=== PATIENT | male | born 1945 ===

== ENCOUNTER 2019-05-12 04:43 | Inpatient (IN) | payer MEDICARE, BC ==
[~2019-05-12] VITALS: Ht 165.1 cm; Wt 72.5 kg
[~2019-05-12 04:43] MED LIST: AMLO10 PO; ASPI81CH PO; ATEN25 PO; HYDACE5 PO; HYDCHL25 PO; HYDRA25 PO; INSUASPI SC; INSULANPEN SC; LISI20 PO
[2019-05-12 05:27] LABS: BASOPHILS ABSOLUTE AUTO 0.08 K/mm3 (0.00-0.23); BASOPHILS PERCENT AUTO 0 % (0-2); EOSINOPHILS ABSOLUTE AUTO 0.01 K/mm3 (0.00-0.68); EOSINOPHILS PERCENT AUTO 0 % (0-6); Hematocrit 36.7 % (37.0-53.0); Hemoglobin 12.4 g/dL (13.5-17.5); IMMATURE GRAN ABSOLUTE AUTO 0.11 K/mm3 (0.00-0.10); IMMATURE GRAN PERCENT AUTO 0 % (0-1); LYMPHOCYTES ABSOLUTE AUTO 1.83 K/mm3 (0.84-5.20); LYMPHOCYTES PERCENT AUTO 7 % (21-46); MONOCYTES ABSOLUTE AUTO 1.28 K/mm3 (0.16-1.47); MONOCYTES PERCENT AUTO 5 % (4-13); Mean Corpuscular HGB 31.6 pg (26.0-34.0); Mean Corpuscular HGB Conc 33.8 g/dL (31.5-36.5); Mean Corpuscular Volume 94 fL (80-100); Mean Platelet Volume 9.6 fL (9.1-12.4); NEUTROPHILS ABSOLUTE AUTO 22.79 K/mm3 (1.96-9.15); NEUTROPHILS PERCENT AUTO 87 % (41-73); Platelet Count 359 K/mm3 (150-400); RDW Coefficient Variation 14.3 % (11.7-14.2); RDW Standard Deviation 48.9 fL (35.1-46.3); Red Blood Cell Count 3.92 M/mm3 (4.30-5.90)
[2019-05-12 05:36] LABS: PCO2 Arterial 25.5 mmHg (35-45); PO2 Arterial 60.5 mmHg (80-100); pH Blood Arterial 7.43 (7.35-7.45)
[2019-05-12 05:45] LABS: Alanine Aminotransfer (ALT/SGP 25 U/L (12-78); Albumin, Blood 3.3 g/dL (3.4-5.0); Albumin/Globulin Ratio 0.9 (0.8-1.8); Alk Phos 100 U/L (50-136); Anion Gap 13 mmol/L (6-16); Aspartate Aminotrans (AST/SGOT 51 U/L (12-37); Bilirubin, Total 0.8 mg/dL (0.1-1.0); Blood Urea Nitrogen 39 mg/dL (8-24); Bun/Creatinine Ratio 36.1 (12.0-20.0); CO2, Blood 18 mmol/L (21-32); Calcium, Blood 9.2 mg/dL (8.5-10.1); Chloride, Blood 107 mmol/L (98-108); Creatinine, Blood 1.08 mg/dL (0.60-1.20); Globulin, Blood 3.7 g/dL (2.2-4.0); Glomerular Filtration Rate >60 (60-); Glucose, Blood 321 mg/dL (70-99); Magnesium, Blood 2.4 mg/dL (1.6-2.4); Potassium, Blood 4.3 mmol/L (3.5-5.5); Sodium, Blood 138 mmol/L (136-145); Troponin I 0.207 ng/mL (0.000-0.040)
[2019-05-12 07:25] LABS: Calcium, Ionized (POC) 1.01 mmol/L (1.10-1.46); Chloride (POC) 114 mmol/L (98-108); Creatinine (POC) 1.2 mg/dL (0.8-1.3); Glucose (ISTAT POC) 411 mg/dL (70-99); Hemoglobin (POC) 12.6 g/dL (13.5-17.5); Sodium (POC) 137 mmol/L (135-148); Total CO2 (POC) 12 mmol/L (21-32)
[2019-05-12 07:30] LABS: PCO2 Arterial 64.5 mmHg (35-45); PO2 Arterial 105 mmHg (80-100)
[2019-05-12 07:34] LABS: pH Blood Arterial <6.80 (7.35-7.45)
[2019-05-12 08:40] LABS: International Normalized Ratio 0.92; Prothrombin Time Results 9.8 Sec (9.7-11.5)
--- NOTE | 2019-05-12 09:11 | NUR ---
ADMIT: PT ARRIVED TO ICU 7 ABOUT 0800. PT INTUBATED, ON THE VENTILATOR, NOT WELL SYNCHRONIZED WITH THE VENTILATOR AND ALARMING HIGH PEAK PRESSURES. PT TRANSFERRED TO ICU BED AND PROPOFOL INCREASED UP TO 20MCG/KG/MIN. PT PLACED IN RESTRAINTS TO PREVENT EXTUBATION. RT AT THE BEDSDIE TRYING TO IMPROVE SATS BUT PT IS MAINTAINING IN THE 80S ON 100%fio2 AND PEEP 10. DR. MIRANDA NOTIFIED AND CAME TO THE BEDSIDE. PROPOFOL INCREASED TO 30MCG/KG/MIN BUT PT IS STILL STRUGGLING WITH THE VENTILATOR. DR. MIRANDA GAVE ORDERS FOR NIMBEX. BASELINE TRAIN OF 4 4/4, STARTED NIMBEX AT 3MCG/KG/MIN AND AFTER 15 MIN TRAIN OF 4 STILL 4/4, BUT PT IS SYNCHRONIZED BETTER WITH THE VENTILATOR AND NOT ALARMING HIGH OF PEAK PRESSURES SO DOSE LEFT EHS SHANIA FOR NOW. DR. MIRANDA GAVE ORDERS FOR PICC LINE, MELVINA MONTOYA IN STARTING PICC NOW. PT IS MODDLED UP TO HIS WAIST. GAVE ORDERS TO START LEVOPHED FOR SBP 80S ONCE PICC LINE STARTED AND TO GIVE 40MG LASIX ONCE LEVOPHED IS STARTED. ALSO GAVE ORDERS TO STOP IV FLUIDS. PT'S WAS AT THE BEDSIDE AND TALKED EXTENSIVELY WITH DR. MIRANDA. SHE WISHES TO MAKE PT DNR, BUT TO CONTINUE CARE AT THE CURRENT LEVEL.
[2019-05-12 10:34] LABS: PCO2 Arterial 65.2 mmHg (35-45); PO2 Arterial 88.4 mmHg (80-100); pH Blood Arterial 6.91 (7.35-7.45)
--- NOTE | 2019-05-12 11:21 | NUR ---
Pt visit this AM. Pt currently intubated and procedure underway by Dr Kiser for Art line. Spoke with bedside nurse Eli. She reports Pt is not doing well clinically. Pt's Anabelle is currently in ICU waiting room. Escorted Anabelle to ED Palliative Care office and discussed case. Reported Pt's current condition. Anabelle reports having a conversation with Pt and states he would not want his life prolonged. She describes his wishes as being alive vs living. She states he does not want to be alive if he can't live. Discussed the possibility of poor prognosis and Dr Kiser will come talk with her after placing art line. Anabelle reports she has been attempting to get ahold of daughter who lives in [place] without success. She also reports Pt has brothers one of whom lives in [place] and another is flying in from [place]. Anabelle tearful at times and this RN offered emotional support. Anabelle reports no other concerns at this time. Palliative Care will remain available.
[2019-05-12 11:55] LABS: Hematocrit 31.1 % (37.0-53.0); Hemoglobin 9.5 g/dL (13.5-17.5)
--- NOTE | 2019-05-12 12:08 | NUR ---
PT HAS CONTINUED TO BE UNSTABLE. WHILE PICC LINE WAS BEING PLACED, BP WAS UNABLE TO BE MEASURED AND THEN HR WAS DROPPING TO THE 50S AND THEN 40S. LEVOPHED STARTED SOON PICC LINE PLACED AND HR WENT BACK UP TO THE 70S, BUT BP REMAINED IN THE 70S DESPITE LEVOPHED BEING TITRATED UP TO 20MCG/MIN. DR. NAJERA AT THE BEDSIDE AND ORDERED VASOPRESSIN. SBP REMAINED IN THE 70S WITH VASOPRESSIN SO EPI THEN ADDED PER MD. PT HAD NO URINE OUTPUT DESPITE 40MG OF LASIX IV. WITH PRESSORS MAXED OUT ( EPI AT 10MCG/MIN, LEVOPHED 30MCG/MIN AND VASOPRESSIN 0.04 UN/HR) PT'S BP NOT READING AGAIN. DR. NAJERA PLACED R FEMORAL ARTERIAL LINE AND ART LINE READING SBP 70S, MAP 50S ONCE PLACED. DR. NAJERA ORDERED 2L LR GIVEN, 2 AMP OF BICARB, SOLUMEDROL AND THEN HYDROCORTISONE. DESPITE ALL THIS PT'S MAP CONTINUES TO BE LOW AND SBP IN THE 70S. DR. BELLAMY AND PALLIATIVE CARE HAD LONG DISCUSSION WITH PT'S WHO UNDERSTANDS THE SEVERITY OF THE SITUATION. PT'S IS AT THE BEDSIDE CURRENTLY, SHE STATES SHE HAS A FRIEND COMING IN FROM [place] TO SIT WITH HER.
--- NOTE | 2019-05-12 12:52 | NUR ---
PT : WITH ALL PRESSORS INFUSING AT MAX RATES PT'S HR SLOWED DOWN TO THE 30S AND THEN STOPPED. PT'S AT THE BEDSIDE AT TIME OF AT 1232. CONFIRMED LACK OF HEARTBEAT WITH AUSCULTATION. PALLIATIVE CARE AND DR. REYES NOTIFIED.
--- NOTE | 2019-05-12 15:31 | NUR ---
PT'S CALLED AND REQUESTED [facility] FOR HOME. DAVIDSON, WITH [facility] HERE TO DRY KILN OPERATOR HELPER PT'S BODY AT 1520.
== END 2019-05-12 15:24 | DRG 871 ==
LOC: ER 04:43 → ICUW 06:06 → ICUE 07:50
PROVIDERS: Emergency Medicine; ADMIT Internal Medicine
PROC: 5A09357 Assistance with Respiratory Ventilation, Less than 24 Consecutive Hours, Continuous Positive Airway Pressure (ICD-10-PCS; principal; 2019-05-12)
PROC: 3E043XZ Introduction of Vasopressor into Central Vein, Percutaneous Approach (ICD-10-PCS; 2019-05-12)
PROC: 04HK33Z Insertion of Infusion Device into Right Femoral Artery, Percutaneous Approach (ICD-10-PCS; 2019-05-12)
PROC: 5A12012 Performance of Cardiac Output, Single, Manual (ICD-10-PCS; 2019-05-12)
PROC: 0BH17EZ Insertion of Endotracheal Airway into Trachea, Via Natural or Artificial Opening (ICD-10-PCS; 2019-05-12)
PROC: 5A1935Z Respiratory Ventilation, Less than 24 Consecutive Hours (ICD-10-PCS; 2019-05-12)
DX: A41.9 Sepsis, unspecified organism (principal); J96.01 Acute respiratory failure with hypoxia; G93.41 Metabolic encephalopathy; J18.1 Lobar pneumonia, unspecified organism; R65.21 Severe sepsis with septic shock; J96.02 Acute respiratory failure with hypercapnia; C91.90 Lymphoid leukemia, unspecified not having achieved remission; K62.5 Hemorrhage of anus and rectum; Z66 Do not resuscitate; Z90.79 Acquired absence of other genital organ(s); E11.9 Type 2 diabetes mellitus without complications; I10 Essential (primary) hypertension; Z79.4 Long term (current) use of insulin; Z79.82 Long term (current) use of aspirin; Z87.891 Personal history of nicotine dependence; Z85.46 Personal history of malignant neoplasm of prostate
CPT/HCPCS: 31500; 31720; 36415; 36569; 36600; 36620; 51702; 71045; 80047; 80053; 82803; 83605; 83690; 83735; 83880; 84145; 84484; 85014; 85018; 85025; 85610; 85730; 86850; 86900; 86901; 87040; 92950; 93005; 93010; 94002; 94640; 94660; 96361-59; 96365-59; 96367-59; 96375-59; 99291-25; C1751; C1769; C9113; J0171; J0456; J0696; J0713; J1720; J1940; J2060; J2250; J2704; J2920; J2930; J3010; J3370; J7030; J7050; J7060; J7120